=== PATIENT | female | born 1975 | race Caucasian/White ===

== ENCOUNTER 2016-11-30 16:20 | Emergency (ER) | payer MEDICARE, MEDICAID ==
[2016-11-30] MEDS ORDERED: KETOROLAC 60 MG/2 ML VIAL ONE (17:25)
[2016-11-30] MEDS ORDERED: KETOROLAC 60 MG/2 ML VIAL IM STA (17:25)
== END 2016-11-30 17:34 | disposition home or self-care (01) ==
DX: S63.502A Unspecified sprain of left wrist, initial encounter (principal); W18.30XA Fall on same level, unspecified, initial encounter; F17.200 Nicotine dependence, unspecified, uncomplicated

== ENCOUNTER 2016-12-20 11:43 | Emergency (ER) | payer MEDICARE, MEDICAID ==
[2016-12-20] MEDS ORDERED: diphenhydrAMINE INJ 50 MG/ML VIAL IVP STA (13:02)
[2016-12-20] MEDS ORDERED: KETOROLAC 60 MG/2 ML VIAL IVP STA (13:02)
[2016-12-20] MEDS ORDERED: PROCHLORPERAZINE 10 MG/2 ML VIAL IVP STA (13:02)
[2016-12-20] MEDS ORDERED: ONDANSETRON 4 MG/2 ML VIAL IVP STA (13:02)
[2016-12-20] MEDS ORDERED: SODIUM CHLORIDE 0.9% 1,000 ML IV ONE (13:02)
[2016-12-20] MEDS ORDERED: MAGNESIUM SULFATE 2 GRAM 50 ML IV ONE ×2 (13:02→13:08)
[2016-12-20] MEDS ORDERED: diphenhydrAMINE INJ 50 MG/ML VIAL ONE (13:07)
[2016-12-20] MEDS ORDERED: PROCHLORPERAZINE 10 MG/2 ML VIAL ONE ×2 (13:08→13:14)
[2016-12-20] MEDS ORDERED: KETOROLAC 30 MG/ML VIAL ONE (13:08)
[2016-12-20] MEDS ORDERED: ONDANSETRON 4 MG/2 ML VIAL ONE (13:08)
[2016-12-20] MEDS ORDERED: BUTALB/ACETAM/CAFF 50/325/40MG TABLET PO STA (14:54)
[2016-12-20] MEDS ORDERED: METOCLOPRAMIDE 10 MG/2 ML VIAL IVP STA (15:01)
[2016-12-20] MEDS ORDERED: METOCLOPRAMIDE 10 MG/2 ML VIAL IVP ONE (15:04)
== END 2016-12-20 15:36 | disposition home or self-care (01) ==
DX: R51 Headache (principal); R03.0 Elevated blood-pressure reading, without diagnosis of hypertension; F17.200 Nicotine dependence, unspecified, uncomplicated
CPT/HCPCS: 96374; 96375; 99283; 99284; A9270

== ENCOUNTER 2017-02-11 13:18 | Outpatient (CLI) | payer MEDICARE, MEDICAID | END 2017-02-11 13:19 | disposition home or self-care (01) | DX: M50.30 Other cervical disc degeneration, unspecified cervical region (principal); M50.21 Other cervical disc displacement, high cervical region; M47.9 Spondylosis, unspecified ==